=== PATIENT | male | born 1985 | race Two or more races ===

== ENCOUNTER 2017-02-22 08:42 | Emergency (ER) | payer SELFPAY ==
[2017-02-22] MEDS ORDERED: KETOROLAC 30 MG/1 ML SDV IVP ONE (08:56)
[2017-02-22] MEDS ORDERED: HYDROmorphONE/DILAUDID 1 MG/ML SYR IVP ONE ×2 (08:56→11:30)
[2017-02-22] MEDS ORDERED: NS 500 ML IV ONE (08:58)
[2017-02-22 09:01] LABS: COLOR YELLOW; LEUKOCYTE ESTERASE,URINE NEGATIVE (NEGATIVE); NITRITE,URINE NEGATIVE (NEGATIVE); PH,URINE 6.5 (5.0-7.5)
--- NOTE | 2017-02-22 09:03 | EDPHY ---
H & P Time Seen by Provider: 02/22/17 08:49 HPI/ROS: HPI Back pain. 31-year-old male by private vehicle with family. Patient woke up this morning with left-sided lower back pain which he describes as very severe. He reports that he has had this pain in the past but it has not been this bad. He denies any bowel or bladder incontinence. No fever. No history of malignancy. He denies any abdominal pain. No numbness or weakness in his lower extremities. He is not an IV drug user. He denies any gross hematuria. No history of acute trauma. Pain is worse with any kind of movement of his lower back. ROS: Constitutional: No fever, no chills. No weakness. Eyes: No discharge. No changes in vision. ENT: No sore throat. No nasal congestion or rhinorrhea. Respiratory: No cough. No shortness of breath. Cardiac: No chest pain, no palpitations. Gastrointestinal: No abdominal pain, no vomiting, no diarrhea. Genitourinary: No hematuria. No dysuria or increased frequency with urination. Musculoskeletal: Back pain as above. No neck pain. No myalgias or arthralgias. Skin: No rashes. Neurological: No headache. No focal weakness or altered sensation. Past medical history: He denies any significant past medical history. No contraindications to NSAIDs. No kidney problems. As above. [facility]. Social history: Nonsmoker. He drinks alcohol on a regular basis. He works as a field engineer. Here with family. Physical Exam: General Appearance: Alert, he appears uncomfortable. This patient is responding to questions appropriately and in full sentences. This patient appears well-hydrated and well-nourished. Eyes: Pupils equal and round no pallor or injection. No lid edema, erythema or injection. Back exam: Moderate midline lumbar sacral tenderness on palpation L4 through L5 as well as lower left-sided CVA tenderness on palpation. No bony deformity or step-off noted on palpation of his lumbar sacral spine. No right sided CVA tenderness on palpation. He also has vague tenderness on palpation over the left sacroiliac joint. No associated soft tissue changes. He has a negative same side and cross side straight leg raise test. He is neurologically intact in all myotomes in dermatomes of the bilateral lower extremities. Gastrointestinal: Abdomen is soft and nontender, no masses, bowel sounds normal. No focal tenderness at McBurney's point. No Escobedo sign. Neurological: Motor sensory function is grossly intact. Cranial nerves are normal. Gait is normal. Skin: Warm and dry, no rashes. Musculoskeletal: Neck is supple and nontender. Extremities are symmetrical. All joints range without pain or impingement. Psychiatric: No agitation. No depression. Database: EKG: Imaging: CT scan of abdomen and pelvis without contrast: Significant for a large extrusion of the intervertebral disc at L4-L5 with obliteration of the spinal canal. Disc extrusion measures 14 mm cranial to caudal, Mercado mm anterior to posterior, 17 mm right to left. Spinal canal is 4 mm behind the disc, normal is 13-14 mm. No other significant findings on this CAT scan. Results were discussed with staff radiologist Dr. Jacoby Castillo. She recommends MR imaging for further evaluation. Procedures: Emergency department course: Vital signs reviewed. IV placed. Patient placed on a monitor. He denies any contraindications to NSAIDs or history of renal dysfunction. He was given 30 mg of IV Toradol and 1 mg of IV hydromorphone initially for pain. He was started on IV normal saline with 500 cc to be given over 1 hour. Considering his level of discomfort ureterolithiasis and acute lumbar intervertebral disc herniation are considered. He consents for noncontrast CT imaging of his abdomen and pelvis. 9:30 a.m., patient re-evaluated. Resting comfortably at this time. His pain is better controlled after above medications. Results of CT imaging and diagnosis discussed with him and family. Need for MR imaging and transfer to the [facility] Emergency Department discussed. They consent. They are requesting ambulance transfer. 9:50 a.m., spoke with physician assistant dean, Clarisse Centeno, at [facility] emergency department. Case discussed in detail with her. MR of the LS spine has been ordered. Care will be assumed by Dr. Connie Goncalves, emergency physician attending and physician assistant dean Clarisse Centeno on arrival to the [facility] Emergency Department. Plan will be to follow up on results of MR and neurosurgery consult. 10:20 a.m., patient transferred in stable condition. Neurologic Assessment unchanged from prior at time of transfer. Differential Diagnosis: The differential diagnosis on this patient includes but is not limited to sacroiliac sprain, ureterolithiasis, musculoskeletal back pain. Epidural compression syndrome, acute radiculopathy, herniated intervertebral disc, epidural abscess, AAA, cauda equina syndrome unlikely. This represents a partial list of diagnoses considered. These considerations are based on history , physical exam, past history, reassessment and diagnostic testing. Smoking Status: Never smoked Constitutional: Initial Vital Signs Temperature (C) 36.3 C 02/22/17 08:51 Heart Rate 68 02/22/17 08:51 Respiratory Rate 18 02/22/17 08:51 Blood Pressure 119/59 L 02/22/17 08:51 O2 Sat (%) 97 02/22/17 08:51 O2 Delivery Mode Room Air Allergies/Adverse Reactions: No Known Allergies Allergy (Unverified 02/22/17 08:50) Home Medications: Medication Instructions Recorded NK [No Known Home Meds] 02/22/17 Medical Decision Making - Diagnostics Imaging Results: Imaging Impressions Abdomen/Pelvis CT 02/22/17 08:57 Impression: 1. No renal or ureteral stones. No hydronephrosis. 2. Large extruded disk at L4-L5 with severe spinal canal stenosis. Findings and recommendations discussed with Odessa Vasquez M.D. at 0924 hours on February 22, 2017. Final report concurs with initial preliminary interpretation. Attention: This examination does not use radiographic contrast, and as such, provides only a limited evaluation of the abdomen, pelvis, and retroperitoneum. If there is further clinical suspicion for pathological conditions, a complete CT evaluation of the abdomen and pelvis utilizing intravenous, oral, and rectal contrast should be considered. - Data Points Laboratory Results: 02/22/17 02/22/17 08:50 08:50 Urine Color YELLOW Urine Appearance CLEAR Urine pH 6.5 (5.0-7.5) Ur Specific [place] 1.015 (1.002-1.030) Urine Protein NEGATIVE (NEGATIVE) Urine Ketones NEGATIVE (NEGATIVE) Urine Blood NEGATIVE (NEGATIVE) Urine Nitrate NEGATIVE (NEGATIVE) Urine Bilirubin NEGATIVE (NEGATIVE) Urine Urobilinogen 0.2 EU EU (0.2-1.0) Ur Leukocyte Esterase NEGATIVE (NEGATIVE) Urine RBC 1-3 /hpf /hpf (0-3) Urine WBC 0-1 /hpf /hpf (0-3) Ur Epithelial Cells TRACE /lpf /lpf (NONE-1+) Amorphous Sediment 1+ /hpf /hpf (NONE-1+) Urine Bacteria TRACE /hpf H /hpf (NONE SEEN) Urine Mucus 1+ /lpf /lpf (NONE-1+) Urine Glucose NEGATIVE (NEGATIVE) Medications Given: Discontinued Medications Hydromorphone HCl (Dilaudid) 1 mg IVP EDNOW ONE Stop: 02/22/17 08:57 Last Admin: 02/22/17 09:18 Dose: 1 mg Sodium Chloride (Ns) 500 mls @ 1,000 mls/hr IV ONCE ONE PRN Reason: Protocol Stop: 02/22/17 09:27 Last Admin: 02/22/17 09:10 Dose: 500 mls Ketorolac Tromethamine (Toradol) 30 mg IVP EDNOW ONE Stop: 02/22/17 08:57 Last Admin: 02/22/17 09:16 Dose: 30 mg Departure - Departure Disposition: [facility] Clinical Impression: Lower back pain, Lumbar disc herniation Referrals: NADIRA MOREL,. [Primary Care Provider] - As per Instructions
[2017-02-22 09:17] LABS: AMORPHOUS 1+ /hpf (NONE-1+); BACTERIA TRACE /hpf (NONE SEEN); MUCUS 1+ /lpf (NONE-1+); WBC,URINE 0-1 /hpf (0-3)
[2017-02-22 11:07] VITALS: RESP 16
[2017-02-22] MEDS ORDERED: HYDROmorphONE/DILAUDID 1 MG/ML SYR ONE (11:27)
--- NOTE | 2017-02-22 12:33 | EDPHY ---
H & P Time Seen by Provider: 02/22/17 08:49 Smoking Status: Never smoked Constitutional: Initial Vital Signs Temperature (C) 36.3 C 02/22/17 08:51 Heart Rate 68 02/22/17 08:51 Respiratory Rate 18 02/22/17 08:51 Blood Pressure 119/59 L 02/22/17 08:51 O2 Sat (%) 97 02/22/17 08:51 O2 Delivery Mode Nasal Cannula O2 (L/minute) 2 Allergies/Adverse Reactions: No Known Allergies Allergy (Unverified 02/22/17 08:50) Home Medications: Medication Instructions Recorded NK [No Known Home Meds] 02/22/17 Medical Decision Making - Diagnostics Imaging Results: Imaging Impressions Abdomen/Pelvis CT 02/22/17 08:57 Impression: 1. No renal or ureteral stones. No hydronephrosis. 2. Large extruded disk at L4-L5 with severe spinal canal stenosis. Findings and recommendations discussed with Odessa Vasquez M.D. at 0924 hours on February 22, 2017. Final report concurs with initial preliminary interpretation. Attention: This examination does not use radiographic contrast, and as such, provides only a limited evaluation of the abdomen, pelvis, and retroperitoneum. If there is further clinical suspicion for pathological conditions, a complete CT evaluation of the abdomen and pelvis utilizing intravenous, oral, and rectal contrast should be considered. - Data Points Laboratory Results: 02/22/17 02/22/17 08:50 08:50 Urine Color YELLOW Urine Appearance CLEAR Urine pH 6.5 (5.0-7.5) Ur Specific [place] 1.015 (1.002-1.030) Urine Protein NEGATIVE (NEGATIVE) Urine Ketones NEGATIVE (NEGATIVE) Urine Blood NEGATIVE (NEGATIVE) Urine Nitrate NEGATIVE (NEGATIVE) Urine Bilirubin NEGATIVE (NEGATIVE) Urine Urobilinogen 0.2 EU EU (0.2-1.0) Ur Leukocyte Esterase NEGATIVE (NEGATIVE) Urine RBC 1-3 /hpf /hpf (0-3) Urine WBC 0-1 /hpf /hpf (0-3) Ur Epithelial Cells TRACE /lpf /lpf (NONE-1+) Amorphous Sediment 1+ /hpf /hpf (NONE-1+) Urine Bacteria TRACE /hpf H /hpf (NONE SEEN) Urine Mucus 1+ /lpf /lpf (NONE-1+) Urine Glucose NEGATIVE (NEGATIVE) Medications Given: Discontinued Medications Hydromorphone HCl (Dilaudid) 1 mg IVP EDNOW ONE Stop: 02/22/17 08:57 Last Admin: 02/22/17 09:18 Dose: 1 mg Hydromorphone HCl (Dilaudid) 1 mg IVP EDNOW ONE Stop: 02/22/17 11:31 Last Admin: 02/22/17 11:31 Dose: 1 mg Sodium Chloride (Ns) 500 mls @ 1,000 mls/hr IV ONCE ONE PRN Reason: Protocol Stop: 02/22/17 09:27 Last Admin: 02/22/17 09:10 Dose: 500 mls Ketorolac Tromethamine (Toradol) 30 mg IVP EDNOW ONE Stop: 02/22/17 08:57 Last Admin: 02/22/17 09:16 Dose: 30 mg Departure - Departure Disposition: [facility] Clinical Impression: Lower back pain, Lumbar disc herniation Referrals: NADIRA MOREL,. [Primary Care Provider] - As per Instructions
--- NOTE | 2017-02-22 12:59 | EDPHY ---
H & P Stated Complaint: LOWER BACK PAIN, CONSTANT SHARP PAIN STARTED AT 530AM, DENIES INJURY Time Seen by Provider: 02/22/17 08:49 HPI/ROS: CHIEF COMPLAINT: Lower back pain. HISTORY OF PRESENT ILLNESS: The patient is a 31-year-old male who presents with sharp lower back pain. He has had this back pain intermittently over the past month but it worsened significantly this morning at 0530. The pain initially began when he was at his [employer] job and was struck in the back of the head by a tree and pinned on the ground. Patient's pain increased today and he was seen at the [facility]. Initial evaluation included a CT scan abdomen pelvis demonstrating disc extrusion at L4-L5. Patient was referred to [facility] for MRI. He denies numbness, paresthesias, or weakness. He does not have numbness or weakness in his legs. He denies urinary or bowel incontinence. No fever, chills, chest pain , shortness of breath, palpitations, vomiting, diarrhea, urinary complaints, headache, lightheadedness. History obtained via [place] modern languages professor at bedside. REVIEW OF SYSTEMS: Aside from elements discussed in the HPI, a comprehensive 10-point review of systems was reviewed and is negative. PAST MEDICAL HISTORY: Denies. SOCIAL HISTORY: Works in [employer]. VITAL SIGNS: Reviewed by me GENERAL: Well-developed, well-nourished, uncomfortable when having to move about the bed. HEENT: Benign. LUNGS: Clear to auscultation bilaterally, no wheezes, rhonchi or rales. CARDIAC: Regular rate and rhythm, no rubs, murmurs or gallops. ABDOMEN: Soft, nontender, nondistended, bowel sounds normal. BACK: No CVA tenderness. Tenderness over lower lumbar spine, just to the left of midline, most pronounced at L4-L5. EXTREMITIES: No trauma. No edema. Range of motion is normal throughout. Neurological exam: Straight leg raise on the left causes a worsening of the back pain. Hip flexion, knee extension, knee flexion, dorsiflexion and plantar flexion are 5/ 5 bilaterally. EHL 4 over 5 on the left and normal on the right. Sensation is intact to light touch throughout. 2+ knee and ankle jerk bilaterally. SKIN: Warm and dry, no rash. PSYCHIATRIC: Normal mentation, no agitation. Portions of this note were transcribed by a medical affairs specialist. I personally performed a history, physical exam, medical decision making, and confirmed accuracy of information the transcribed note. Source: Patient, [employer] Exam Limitations: No limitations - Medical/Surgical History Other PMH: DENIES - Social History Smoking Status: Never smoked Constitutional: Initial Vital Signs Temperature (C) 36.3 C 02/22/17 08:51 Heart Rate 68 02/22/17 08:51 Respiratory Rate 18 02/22/17 08:51 Blood Pressure 119/59 L 02/22/17 08:51 O2 Sat (%) 97 02/22/17 08:51 O2 Delivery Mode Room Air O2 (L/minute) 2 Allergies/Adverse Reactions: No Known Allergies Allergy (Unverified 02/22/17 08:50) Home Medications: Medication Instructions Recorded Cyclobenzaprine [Flexeril 10 MG 10 mg PO TID PRN #20 tab 02/22/17 (RX)] Hydrocodone/APAP 5/325 [[place] 1 tab PO Q6H PRN #14 tab 02/22/17 5/325 (RX)] methylPREDNISolone [Medrol Dose 4 mg PO DAILY #1 ea 02/22/17 Albin] Medical Decision Making - Diagnostics Imaging Results: Imaging Impressions Abdomen/Pelvis CT 02/22/17 08:57 Impression: 1. No renal or ureteral stones. No hydronephrosis. 2. Large extruded disk at L4-L5 with severe spinal canal stenosis. Findings and recommendations discussed with Odessa Vasquez M.D. at 0924 hours on February 22, 2017. Final report concurs with initial preliminary interpretation. Attention: This examination does not use radiographic contrast, and as such, provides only a limited evaluation of the abdomen, pelvis, and retroperitoneum. If there is further clinical suspicion for pathological conditions, a complete CT evaluation of the abdomen and pelvis utilizing intravenous, oral, and rectal contrast should be considered. Lumbar Spine MRI 02/22/17 09:57 Impression: A combination of broad-based disk bulge, with possibly a more acute component of a left paracentral disk herniation at L4-L5, causing moderate to severe canal compromise at this level, particularly on the left. There is L4, and likely L5 nerve root impingement. Findings and recommendations discussed with Dr. Odessa Vasquez, at 12:0 hours on February 22, 2017. Final report concurs with initial preliminary interpretation. ED Course/Re-evaluation: This patient was initially seen by Dr. Vasquez at [facility] this morning for lumbar spine pain that has been intermittent over the past month but was worse this morning. A CT scan showed a lumbar disc herniation and he was sent to the ER for MRI testing. He has no numbness or weakness in his back or legs and no incontinence. His pain is worse with movement. I consulted with Dr. Liv Castillo, radiology, who reports a lumbar disc herniation between L4 and L5 with severe spinal stenosis. I discussed these results with the patient and his family via citrus fruit packer. Neurosurgery has been paged. 1316: Consulted with Dr. Hernadez, neurosurgery. Films were reviewed by Dr. Hernadez. Patient will be started on conservative therapy of nonsteroidals, Medrol Dosepak, Flexeril, and pain meds as needed. Appointment was for the patient at Dr. Quijano office next week. He and his family understand the importance of rest as well as medication for pain, spasm, and inflammation. They also understand reasons to return to the emergency department including worsening pain, inability to walk, bowel or bladder difficulties. Differential Diagnosis: After history was obtained and physical exam performed, the differential for back pain was considered including but not limited to muscular pain, herniated disc, spine fracture, intra-abdominal causes, and urinary tract infection. - Data Points Laboratory Results: 02/22/17 02/22/17 08:50 08:50 Urine Color YELLOW Urine Appearance CLEAR Urine pH 6.5 (5.0-7.5) Ur Specific [place] 1.015 (1.002-1.030) Urine Protein NEGATIVE (NEGATIVE) Urine Ketones NEGATIVE (NEGATIVE) Urine Blood NEGATIVE (NEGATIVE) Urine Nitrate NEGATIVE (NEGATIVE) Urine Bilirubin NEGATIVE (NEGATIVE) Urine Urobilinogen 0.2 EU EU (0.2-1.0) Ur Leukocyte Esterase NEGATIVE (NEGATIVE) Urine RBC 1-3 /hpf /hpf (0-3) Urine WBC 0-1 /hpf /hpf (0-3) Ur Epithelial Cells TRACE /lpf /lpf (NONE-1+) Amorphous Sediment 1+ /hpf /hpf (NONE-1+) Urine Bacteria TRACE /hpf H /hpf (NONE SEEN) Urine Mucus 1+ /lpf /lpf (NONE-1+) Urine Glucose NEGATIVE (NEGATIVE) Medications Given: Discontinued Medications Cyclobenzaprine HCl (Flexeril) 10 mg PO EDNOW ONE Stop: 02/22/17 13:22 Last Admin: 02/22/17 13:40 Dose: 10 mg Hydromorphone HCl (Dilaudid) 1 mg IVP EDNOW ONE Stop: 02/22/17 08:57 Last Admin: 02/22/17 09:18 Dose: 1 mg Hydromorphone HCl (Dilaudid) 1 mg IVP EDNOW ONE Stop: 02/22/17 11:31 Last Admin: 02/22/17 11:31 Dose: 1 mg Sodium Chloride (Ns) 500 mls @ 1,000 mls/hr IV ONCE ONE PRN Reason: Protocol Stop: 02/22/17 09:27 Last Admin: 02/22/17 09:10 Dose: 500 mls Ketorolac Tromethamine (Toradol) 30 mg IVP EDNOW ONE Stop: 02/22/17 08:57 Last Admin: 02/22/17 09:16 Dose: 30 mg Departure - Departure Disposition: Home, Routine, Self-Care Clinical Impression: Lumbar disc herniation Back pain Qualifiers: Back pain location: low back pain Chronicity: acute Back pain laterality: midline Sciatica presence: without sciatica Qualified Code(s): M54.5 - Low back pain Condition: Good Instructions: Lumbar Disc Herniation (ED) Additional Instructions: Take 600mg Ibuprofen every 6-8 hours as needed for pain. Anshu Ibuprofen 600 mg cada 6-8 horas mitzi sea necesario para dolor con comida. Take the steroid as prescribed. Anshu el esteroide mitzi directado. You can use the narcotic pain medication as needed for severe pain. Follow up with Dr. Hernadez, neurosurgery, in a week for reevaluation. Mikki de seguimiento con el Dr. Hernadez de neurocirugia dentro de ana maria semana para re-evaluacion. Return for any serious worsening of condition. Regresar para culaquier empeoramiento de tu condicion. Mikki de seguimiento con Dr. Hernadez el a las 3:10pm para llenar informacion y mikki a las 3:40pm. direccion es [facility] [address] [place] Telefono [phone]. [place] tu tarjeta de identificacion con tu foto y tus discos de tu MRI y tomografia. Hydrocodone/APAP/5/325 ([place] 5/325) 1 tableta Anshu ana maria tableta por la boca cada 6 horas mitzi sea necesario para dolor. Cyclobenzaprine (Flexeril 10 mg) 10 mg tableta Anshu 10 mg por la boca kathryn veces por sandra mitzi sea necesario para espasmos de los musculos. Methylprednisolone (Medrol Dose pack) 1 cada ana maria 4 mg por la boca diario Instruciones de tabletas de 4 mg Primer Sandra; Anshu 2 tabletas antes del desayuno, 1 tableta despues del almuerzo y lifestyle director y 2 tabletas a la hora de dormir Teddy Sandra; Anshu 1 tableta antes del desayuno, 1 tableta despues del almuerzo y lifestyle director y 2 tabletas a la hora de dormir Tercer Sandra; Anshu 1 tableta antes del desayuno, 1 tableta despues del almuerzo y lifestyle director y a la hora de dormir Quarto Sandra; Anshu 1 tableta antes del desayuno, despues del almuerzo y a la hora de dormir Gregorio Sandra; Anshu 1 tableta antes del desayuno y a la hora de dormir Sexto Sandra; Anshu 1 tableta antes del desayuno [facility] - As per Instructions Valeriano Hernadez MD [Medical Doctor] - As per Instructions Prescriptions: Cyclobenzaprine [Flexeril 10 MG (RX)] 10 mg PO TID PRN #20 tab PRN Reason: Muscle Spasms Hydrocodone/APAP 5/325 [[place] 5/325 (RX)] 1 tab PO Q6H PRN #14 tab PRN Reason: Pain methylPREDNISolone [Medrol Dose Albin] 4 mg PO DAILY #1 ea Print Language: [place] Report Scribed for: Connie Goncalves Report Scribed by: Gen Venegas Date of Report: 02/22/17 Time of Report: 12:58
[2017-02-22] MEDS ORDERED: CYCLOBENZAPRINE 10 MG TAB PO ONE (13:21)
[2017-02-22 15:41] VITALS: BP 114/62; PULSE 63; TEMP 97.5; O2SAT 95
== END 2017-02-22 15:36 | disposition home or self-care (01) ==
LOC: CED 08:42
DX: M51.26 Other intervertebral disc displacement, lumbar region (principal)
CPT/HCPCS: 74176-PO; 81003-PO; 81015-PO; 96374; J1170; J1885